=== PATIENT | male | born 1950 | race Caucasian/White ===

== ENCOUNTER 2020-09-02 08:00 | Outpatient (CLI) | payer MEDICARE ==
[2020-09-02 09:15] LABS: FECAL OCCULT BLOOD (FIT) POSITIVE (NEGATIVE); H. PYLORIS ANTIGEN STL NEGATIVE (Negative)
== END 2020-09-02 23:59 | disposition home or self-care (01) ==
LOC: LAB.R 08:00
PROVIDERS: ATTEND Family Medicine
DX: R19.7 Diarrhea, unspecified (principal)
CPT/HCPCS: 81599; 82274; 83993; 87045; 87046; 87177; 87209; 87329; 87338; 87427; 87493